=== PATIENT | female | born 1930 | race Caucasian/White ===

== ENCOUNTER 2017-02-05 15:17 | Observation (INO) | payer OTHER ==
--- NOTE | ~2017-02-05 | HP ---
History And Physical [place] [id number] [facility] [place]. [address] NAME: SHOAIB MONAHAN : [birth year] STATUS : ADM Sid PAT#: [id number] AGE: 86 ADM/REG DATE : 02/05/17 MR#: [id number] REPORT SERV DATE: 02/05/17 DICTATED BY: KRYSTLE BARRON DATE: 02/05/17 REPORT STATUS : Draft TRANSCRIBED BY: MODBenjamin DATE: 02/05/17 DATE OF ADMISSION: 02/05/2017 PRIMARY CARE PHYSICIANS: Dr. Paxton George and Dr. Efren Grewal. PRIMARY ELEVATOR BUILDER: Dr. Ryan Sharma. CHIEF COMPLAINT: Chest pain and lightheadedness as well as hypertension. HISTORY OF PRESENT ILLNESS: This is a very pleasant 86-year-old with history of coronary artery bypass grafting x4 in 12/2012 as well as aortic valve replacement and right carotid endarterectomy. At the same time, who states a 1-week history of lightheadedness and a sense of "weight on my chest." She states the symptoms have been intermittent over the last week, primarily noticed in the morning time and lasting a few hours. If she gets busy with house work, it does not seem to increase the pain. She describes some pain at the top of her head, but not necessarily any headache and had to hold on to things more this week. Denies any presyncope or palpitations or one sided numbness or weakness. She states that by midday, she typically feels better. She took her blood pressure last night and it was 212/101. She states it has been running high over the last week or so. Her two daughters at bedside confirmed this. The patient states, she is compliant with her Coreg, although she takes a fairly low dose of 6.25 mg in the morning and 3.125 in the evening. She last saw Dr. Sharma, on 01/12, who also added a statin. She has only taken this one time. She does not prefer to be on a lot of medications. She denies any recent fever, cough, or chills. She denies any recent exertional chest pains. She denies any orthopnea PND or lower extremity edema. PAST MEDICAL HISTORY: 1. Coronary artery disease, status post CABG x4 on 12/18/[address] Mercado. 2. Hypertension. 3. Evidence of LVH on EKG. 4. Peripheral vascular disease, status post right CEA on 12/17/2012. 5. Aortic stenosis, status post bioprosthetic AVR on 12/18/2012. 6. History of diastolic dysfunction by echocardiogram on 04/21/2016. SURGICAL HISTORY: 1. Hysterectomy. 2. Right hip ORIF sustained after a fall in 2016. 3. Bilateral cataract surgery with interocular lens implants. HOME MEDICATIONS: Not yet obtained through pharmacy, but [facility] documentation, confirmed with patient, indicates aspirin 81 daily, carvedilol 3.125 every evening and 6.25 every morning, statin of unknown type also recently started. ALLERGIES: NO KNOWN DRUG ALLERGIES. History And Physical [address] [address] NAME: SHOAIB MONAHAN : [birth year] STATUS : ADM Sid PAT#: [id number] AGE: 86 ADM/REG DATE : 02/05/17 MR#: [id number] REPORT SERV DATE: 02/05/17 DICTATED BY: KRYSTLE BARRON DATE: 02/05/17 REPORT STATUS : Draft TRANSCRIBED BY: MARILOU DATE: 02/05/17 SOCIAL HISTORY: The patient is a and lives alone on [address]. She has five children, two daughters at bedside. She has never smoked. Rare alcohol consumption. She does use a cane as needed for balance. FAMILY HISTORY: Father of an ND at age sixty. Siblings also with coronary artery disease. REVIEW OF SYSTEMS: Negative except as indicated above. PHYSICAL EXAMINATION: VITAL SIGNS: Blood pressure initially in the emergency department was 230/94, down to a systolic of 140s currently while seen in the ER, heart rate 66, temperature 98.3, pulse oximetry 98% on room air. GENERAL: Well developed, well nourished, in no acute distress HEENT: Anicteric. Normal EOM. Head normocephalic. PERRLA, no xanthelasma. NECK: No JVD. Lymphadenopathy noted. Normal thyroid. There is questionable bruit on the left carotid. Neck is supple. LUNGS: Clear to auscultation bilaterally anterior and posterior. Respirations even and unlabored. CARDIAC: S1, S2 regular rate and rhythm. No murmurs, rubs, or gallops. No chest wall tenderness. ABDOMEN: Normal bowel sounds. Soft and nontender to palpation. No masses or organomegaly. EXTREMITIES: No peripheral edema. DP/PT and radial pulses palpable bilaterally. No clubbing or cyanosis. SKIN: Warm and dry. Normal turgor. No pallor or cyanosis. MUSCULOSKELETAL: Moving all extremities x4. Normal muscle strength. NEURO/PSYCH: Alert and oriented with appropriate affect. LABORATORY DATA: Sodium 142, potassium 4.0, BUN 20, creatinine 0.8, glucose 92. White blood cell count 5.1, hemoglobin 13.9, hematocrit 40.7, platelets 236. Troponin less than 0.02. Chest x-ray shows no acute cardiopulmonary processes. EKG interpreted by myself indicates sinus rhythm with LVH and repolarization abnormalities through the lateral leads. ASSESSMENT AND PLAN: 1. Midsternal chest pain in this 86-year-old female with history of coronary artery bypass grafting. Her initial troponin is negative for acute coronary syndrome. Her EKG is baseline abnormal with LVH and repolarization. It is very possible that the patient's blood pressure is contributing to her chest pain. We will attempt blood pressure control, which was started in the emergency department. She was given IV hydralazine and nitroglycerin paste with good reduction. We will continue to monitor blood pressure overnight and give clonidine as needed as well as increasing her home Coreg dose. Recommend proceeding with a nuclear stress test in the morning to further differentiate ischemic etiology of her chest pain. This will likely need to be a vasodilator study given her left ventricular hypertrophy. 2. Dizziness. The patient denies any recent palpitations or presyncope. This is likely secondary to her uncontrolled hypertension. We will also plan to check orthostatics History And Physical [address] [address] NAME: SHOAIB MONAHAN : [birth year] STATUS : ADM Sid PAT#: [id number] AGE: 86 ADM/REG DATE : 02/05/17 MR#: [id number] REPORT SERV DATE: 02/05/17 DICTATED BY: KRYSTLE BARRON DATE: 02/05/17 REPORT STATUS : Draft TRANSCRIBED BY: MODBenjamin DATE: 02/05/17 while she is here. Caution will need to be made in increasing her blood pressure medicine. 3. Coronary artery disease with history of CABG x4 in 2013. The patient is currently taking aspirin and beta josette. She has also started back on statin therapy. I have urged that she continue this given her history of coronary artery disease as well as carotid artery stenosis. 4. Hypertension, uncontrolled. Plan as above. 5. Mixed hyperlipidemia. Recently started back on statin. We will continue. 6. Peripheral vascular disease, status post right carotid endarterectomy in 2012. If the patient's dizziness persists, outpatient carotid ultrasound may need to be considered. Questionable bruit on the left carotid. DBT/MODL Krystle Barron NP / [id number] CC: RAMAKRISHNA Ching M.D.
[2017-02-05 13:35] LABS: BASOPHILS 0.8 %; BASOPHILS ABSOLUTE 0.04 10/3/uL (0.0-0.16); EOSINOPHILS 4.9 %; EOSINOPHILS ABSOLUTE 0.25 10/3/uL (0.0-0.53); HEMATOCRIT 40.7 % (36.0-48.0); HEMOGLOBIN 13.9 g/dL (12.0-16.0); LYMPHOCYTES 30.9 %; LYMPHOCYTES ABSOLUTE 1.57 10/3/uL (0.67-4.30); MEAN CORPUS HGB CONC 34.2 g/dL (32.0-36.0); MEAN CORPUSCULAR VOLUME 93.6 fL (80-100); MONOCYTES ABSOLUTE 0.51 10/3/uL (0.21-1.20); NEUTROPHILS 53.4 %; NEUTROPHILS ABSOLUTE 2.71 10/3/uL (2.02-8.40); PLATELET COUNT 236 10/3/uL (150-400); RBC DISTRIBUTION WIDTH 13.6 % (12.0-16.0); RED CELL COUNT 4.35 10/6/uL (4.0-5.6); WHITE BLOOD CELLS 5.1 10/3/uL (4.5-10.5)
[2017-02-05 13:36] LABS: MANUAL DIFF NO %
[2017-02-05 13:42] LABS: INTERNATIONAL NORMAL RATI 1.2 UNITS (-); PARTIAL THROMBO TIME 30.9 SEC (22.5-37.2)
[2017-02-05 13:43] LABS: PROTIME (NOT ORD) 15.2 SEC (12.0-14.5)
[2017-02-05 13:51] LABS: CALCIUM, SERUM 9.4 MG/DL (8.5-10.4); CHEST PAIN PROFILE TAT 0 Hrs 20 Mins; CHLORIDE, SERUM 108 MMOL/L (96-112); CO2 (CARBON DIOXIDE) 28 MMOL/L (24-34); CREATININE 0.87 MG/DL (0.55-1.02); GFR AFRICAN AMERICAN 69 ML/MIN (>=60); GFR NON AFRICAN AMERICAN 60 ML/MIN (>=60); GLUCOSE, SERUM 92 MG/DL (60-99); SODIUM, SERUM 142 MMOL/L (135-148); TROPONIN I <0.02 NG/ML (<0.05)
[2017-02-05 13:53] LABS: BUN (BLOOD UREA NITROGEN) 20 MG/DL (6-23)
[~2017-02-05 15:17] MED LIST: [UNRECOGNIZED DRUG - REMARK]
[2017-02-05] MEDS ORDERED: COREG6 PO (16:13)
[2017-02-05] MEDS ORDERED: COREG3 PO (16:13)
[2017-02-05] MEDS ORDERED: ASAB PO (16:14)
[2017-02-05] MEDS ORDERED: CRESTOR20 MG PO (16:17)
[2017-02-05] MEDS ORDERED: CENTRUM PO (16:17)
[2017-02-05] MEDS ORDERED: [UNRECOGNIZED DRUG - OTHER] PO (16:18)
[2017-02-05] MEDS ORDERED: XALAT OPH (16:19)
[2017-02-06] MEDS ORDERED: COREG12 PO (12:33)
== END 2017-02-06 12:55 | disposition home or self-care (01) ==
LOC: ER 15:17 → CDU1 15:21 → CDU2 15:52
PROVIDERS: Emergency Medicine
DX: R07.89 Other chest pain (principal); I10 Essential (primary) hypertension; I73.9 Peripheral vascular disease, unspecified; E78.5 Hyperlipidemia, unspecified; I35.0 Nonrheumatic aortic (valve) stenosis; R42 Dizziness and giddiness; I25.10 Atherosclerotic heart disease of native coronary artery without angina pectoris; Z90.710 Acquired absence of both cervix and uterus; Z95.1 Presence of aortocoronary bypass graft; Z79.82 Long term (current) use of aspirin; Z95.3 Presence of xenogenic heart valve
CPT/HCPCS: 71010; 78452; 80048; 83735; 84484; 85025; 85610; 85730; 93005; 93017; 96374; 99285; A9270-GY; A9502; G0378; J0360